=== PATIENT | female | born 1960 | race Caucasian/White ===

== ENCOUNTER 2019-06-01 05:29 | Day surgery (SDC) | payer BC ==
[2019-05-31 09:37] VITALS: BMI 36.3
[2019-06-01] MEDS ORDERED: MIDAZOLAM HCL 2 MG/2 ML SINGLE DOSE VIAL ONE ×3 (07:22→08:16)
[2019-06-01] MEDS ORDERED: ROPIVACAINE HCL 0.5% 30ML VIAL ONE (07:25)
[2019-06-01] MEDS ORDERED: DEXAMETHASONE SOD PHOSPHATE/PF 10 MG/ML SDV ONE (07:32)
[2019-06-01] MEDS ORDERED: SUCCINYLCHOLINE CHLORIDE 200 MG/10 ML SYRINGE ONE (07:42)
[2019-06-01] MEDS ORDERED: DEXAMETHASONE SOD PHOSPHATE 4 MG/1 ML VIAL ONE (07:42)
[2019-06-01] MEDS ORDERED: PROPOFOL 20 ML ONE (07:42)
[2019-06-01] MEDS ORDERED: BUPIVACAINE HCL/PF 0.5% (5 MG/ML) 30 ML VIAL IJ ONE (07:52)
[2019-06-01] MEDS ORDERED: ceFAZolin SODIUM 1 GM VIAL IVPB ONE (08:15)
[2019-06-01] MEDS ORDERED: ceFAZolin SODIUM 1 GM VIAL ONE ×2 (08:18)
[2019-06-01] MEDS ORDERED: oxyCODONE HCL 5 MG TABLET PO PRN ×2 (08:38)
[2019-06-01] MEDS ORDERED: ONDANSETRON 4 MG/2 ML VIAL IVPUSH PRN (08:38)
--- NOTE | 2019-06-01 09:24 | HP ---
[facility] - Chief Complaint Chief Complaint: L ANKLE PAIN History Source: Patient - Past Medical History Allergies/Adverse Reactions: Allergies Allergy/AdvReac Type Severity Reaction Status Date / Time mupirocin [From Bactroban] Allergy "rash" Verified 06/01/19 06:46 - Current Medications Current Medications: Home Medications Medication Instructions Recorded Metformin HCl [Metformin HCl ER] 1,000 mg PO ACDIN 05/31/19 Satellite Physical Exam - Physical Examination Vital Signs: Vital Signs Period Temp Pulse Resp BP Sys/Gonzalez Pulse Ox Last 24 Hr 97.9 F 86 16 125/81 95-95 Extremities: Other (+ TENDERNESS L LATERAL MAL REGION) Satellite Impression/Plan - Impression/Plan Impression: DISPLACED L LAT MAL Operative Procedure: ORIF L LAT MAL Date to be Performed: 06/01/19
--- NOTE | 2019-06-01 09:29 | OP ---
Operative Note - Note: Operative Date: 06/01/19 Pre-Operative Diagnosis: DISPLACE L LAT MAL FX Operation: ORIF L LAT MAL Post-Operative Diagnosis: Same as Pre-op Surgeon: Edis Lala Anesthesia: Spinal Estimated Blood Loss (mls): 0 Operative Report Dictated: Yes
[2019-06-01] MEDS ORDERED: CEFAZOLIN 1 GM/D5W 1 GM/50 ML BAG IVPB ONE ×2 (14:00→16:30)
--- NOTE | 2019-06-01 15:06 | OP ---
DATE OF OPERATION: 06/01/2019 PREOPERATIVE DIAGNOSIS: Left lateral malleolar fracture. POSTOPERATIVE DIAGNOSIS: Left lateral malleolar fracture. PROCEDURE: Open reduction and internal fixation of left lateral malleolar fracture. SURGICAL ATTENDING: Edis Lala MD ANESTHESIA: Regional and spinal. CLOSURE: Lateral [employer] distal fibula plate with appropriate screws, 0 Vicryl fascia, 2-0 subcutaneous, maria teresa for skin. ESTIMATED BLOOD LOSS: Negligible. COMPLICATION: None. CONDITION: To recovery room in stable condition. DESCRIPTION OF OPERATIVE PROCEDURE: Patient was taken to the operating room on June 01, 2019. Regional and spinal anesthesia was administered by the anesthesiologist. IV Kefzol was administered prophylactically prior to case. A well-padded pneumatic tourniquet was placed on the left proximal calf away from the fibula head. The left lower extremity was prepped and draped in the usual and sterile fashion. The leg was exsanguinated with an Esmarch bandage, tourniquet inflated to 250 mmHg. An 8-cm longitudinal incision over the distal fibula propagating proximally was incised. Full-thickness incision was carried down to the level of the fracture and then periosteal elevator was used to free up the fracture both proximally and distally. Curettes and irrigation were used to clean out premature callus from in and around the fracture. An anatomic reduction was obtained using a pointed reduction clamp, keying in the anterior spike. Posteriorly, however, the posterior spike on the distal fragment was fractured off and was comminuted, not leaving a good place to lag the fracture. A distal fibula plate from [employer], of the appropriate size, was then placed on the aspect of the fibula and was pinned in place both proximally and distally and held with a serrated reduction clamp around the fracture to the plate, achieving anatomic reduction and compression of the fracture. One proximal and one distal screw in a nonlocking fashion was placed to cinch the plate to the bone, then multiple proximal and distal locking screws were placed, achieving excellent fixation. The clamps and the pins were removed. Fluoroscopy in the AP, mortise, and lateral views revealed excellent position of the plate and anatomical reduction of the fracture. The incision was irrigated with copious amounts of irrigation. The fascia was closed using 0 Vicryl, 2-0 subcutaneous and maria teresa for skin. A sterile pressure dressing followed by a U splint with the foot in neutral was applied. Tourniquet was deflated. Total tourniquet time was approximately 40 minutes. No complications. Gray [id number]
[2019-06-01] MEDS: LACTATED RINGERS SOLUTION 1,000 ML IV SCH (21:49)
--- NOTE | 2019-06-02 09:18 | PN ---
Progress Note (short form) - Note Progress Note: Ortho Pt seen and examined s/p left ankle orif pod #1 Selected Entries 06/02/19 06:32 Temperature 97.7 F Pulse Rate 83 Respiratory 18 Rate Blood Pressure 132/77 splint intact, nerve block wearing off nvi a/p NWB elevation d/c home today f/u in 10 days
--- NOTE | 2019-06-02 09:19 | DS ---
Physical Examination Vital Signs: Vital Signs Temperature 97.7 F 06/02/19 06:32 Pulse Rate 83 06/02/19 06:32 Respiratory Rate 18 06/02/19 06:32 Blood Pressure 132/77 06/02/19 06:32 O2 Sat by Pulse Oximetry (%) 97 06/01/19 19:57 Discharge Summary Reason For Visit: FRACTURE LEFT ANKLE Procedures: Principal: left ankle orif Hospital Course: admitted for elective left ankle orif, uneventful post-op, stable for d/c - Instructions - Home Medications Comprehensive Discharge Medication List: Ambulatory Orders Metformin HCl [Metformin HCl ER] 1,000 mg PO ACDIN 05/31/19
[2019-06-02] MEDS ORDERED: PNEUMOC 13-VAL CONJ-DIP CRM/PF 0.5 ML DISP.SYRIN IM ONE (10:10)
[2019-06-02] MEDS: LACTATED RINGERS SOLUTION 1,000 ML IV SCH (11:32)
[2019-06-02] MEDS ORDERED: PNEUMOCOCCAL 23 VACCINE 0.5 ML VIAL IM ONE (12:00)
[2019-06-02 15:32] VITALS: BP 124/61; PULSE 81; TEMP 99.4
== END 2019-06-02 15:41 | disposition home or self-care (01) ==
LOC: JASU-SURG 05:29 → JASUSAT 05:29 → J6S 18:09 → JASUSAT 06-02 15:41
PROVIDERS: ATTEND Orthopaedic Surgery
PROC: 0QSK04Z Reposition Left Fibula with Internal Fixation Device, Open Approach (ICD-10-PCS; principal; 2019-06-01 08:00)
DX: S82.62XA Displaced fracture of lateral malleolus of left fibula, initial encounter for closed fracture (principal); X58.XXXA Exposure to other specified factors, initial encounter; Y93.9 Activity, unspecified; Y92.9 Unspecified place or not applicable
CPT/HCPCS: 76000-TC-FY; 82962; 90732; 94760; 97116-GP; 97161-GP; G0009